=== PATIENT | female | born 1960 | race Caucasian/White ===

== ENCOUNTER 2019-06-28 11:40 | Day surgery (SDC) | payer OTHER ==
[~2019-06-28] VITALS: Wt 77.5 kg
[~2019-06-28 11:40] MED LIST: ALBU90OI6 INH; ALBU90OI61; ESCI10 PO; FLUT110OIA IH; INFANTS PR50 MG/1.25; LISINOPRIL PO; METF500 PO; MONT10T PO; OMEP20ER PO; OXYC1TAB11 PO; POTA10T PO; Symbicort 16010.2 GM; TRIHYD253A PO
== END 2019-06-28 14:41 | disposition home or self-care (01) ==
LOC: ORSCSDS 11:40
PROVIDERS: Internal Medicine Gastroenterology
PROC: 0DB98ZX Excision of Duodenum, Via Natural or Artificial Opening Endoscopic, Diagnostic (ICD-10-PCS; principal; 2019-06-28 14:00)
PROC: 0D757ZZ Dilation of Esophagus, Via Natural or Artificial Opening (ICD-10-PCS; principal; 2019-06-28 14:00)
DX: R13.10 Dysphagia, unspecified (principal); C7A.8 Other malignant neuroendocrine tumors; K22.2 Esophageal obstruction; K44.9 Diaphragmatic hernia without obstruction or gangrene; I10 Essential (primary) hypertension; E78.5 Hyperlipidemia, unspecified; J45.909 Unspecified asthma, uncomplicated; K21.9 Gastro-esophageal reflux disease without esophagitis; E11.40 Type 2 diabetes mellitus with diabetic neuropathy, unspecified; Z79.84 Long term (current) use of oral hypoglycemic drugs; Z79.899 Other long term (current) drug therapy
CPT/HCPCS: 82947; 88305; 88341; 88342; J2250; J2704; J7120

== ENCOUNTER 2023-03-20 10:36 | Day surgery (SDC) | payer OTHER ==
[~2023-03-20] VITALS: Ht 152.4 cm; Wt 75.6 kg
[2023-03-20 13:04] VITALS: BP 120/75
== END 2023-03-20 13:08 | disposition home or self-care (01) ==
LOC: ORSCSDS 10:36
PROVIDERS: Internal Medicine Gastroenterology
PROC: 0DBP8ZX Excision of Rectum, Via Natural or Artificial Opening Endoscopic, Diagnostic (ICD-10-PCS; principal; 2023-03-20 12:30)
DX: R93.3 Abnormal findings on diagnostic imaging of other parts of digestive tract (principal); K62.1 Rectal polyp; K62.89 Other specified diseases of anus and rectum; K57.30 Diverticulosis of large intestine without perforation or abscess without bleeding; K59.00 Constipation, unspecified; Z86.010 Personal history of colon polyps; I10 Essential (primary) hypertension; E11.9 Type 2 diabetes mellitus without complications; J45.909 Unspecified asthma, uncomplicated; Z79.4 Long term (current) use of insulin; Z79.899 Other long term (current) drug therapy
CPT/HCPCS: 82947; 88305; J2001; J2704; J7120